=== PATIENT | male | born 1950 | race Caucasian/White ===

== ENCOUNTER → 2018-02-13 | Outpatient (CLI) | payer BC ==
--- NOTE | 2018-02-13 08:40 | DIAGNOSTIC IMAGING REPORT ---
Study: Fusion CT sinuses. HISTORY: Chronic sinusitis. Facial pain. FINDINGS: All major sinuses are clear. The ostiomeatal units are patent. Orbital margins are intact. There is no evidence for a bony destructive process. There is mild nasal septal displacement to the left. There is minimal hypertrophic change of the nasal turbinates. IMPRESSION: 1. All major sinuses are clear. 2. Minimal nasal septal displacement of the left with minimal hypertrophic change of the nasal turbinates. Electronically signed by: Tobi Marcano M.D. 02/13/2018 8:38 AM Dictated Date/Time: 02/13/2018 8:36 AM
== END | disposition home or self-care (01) ==
LOC: C.CTS 08:27
DX: J32.9 Chronic sinusitis, unspecified (principal)